=== PATIENT | female | born 1965 | race Caucasian/White ===

== ENCOUNTER → 2024-06-27 11:58 | Outpatient (REF) | payer OTHER, SELFPAY | LOC: WDC 11:58 | PROVIDERS: ATTENDING PHYSICIAN Hospitalist | DX: Z12.31 Encounter for screening mammogram for malignant neoplasm of breast (principal) | CPT/HCPCS: 77063; 77067 ==

== ENCOUNTER → 2024-11-26 15:17 | Outpatient (REF) | payer OTHER, SELFPAY | LOC: RAD 15:17 | PROVIDERS: ATTENDING PHYSICIAN Nurse Practitioner | DX: U07.1 COVID-19 (principal) | CPT/HCPCS: 71046 ==

== ENCOUNTER → 2025-03-10 06:42 | Outpatient (REF) | payer OTHER, SELFPAY ==
[2025-03-10 07:28] LABS: Hematocrit 43.1 % (37.0-47.0); Hemoglobin 13.7 g/dL (12.0-16.0); Mean Corp Hgb Conc. 31.8 g/dL (33.0-37.0); Mean Corpuscular Volume 88.3 fL (81.0-99.0); Nucleated Red Blood Cells % 0 %; Platelet Count 407 10^3/uL (130-400); Red Cell Dist. Width 12.1 % (11.5-14.5)
[2025-03-10 07:53] LABS: ALT (SGPT) 15 U/L (0-35); AST (SGOT) 19 U/L (14-36); Albumin 3.8 g/dl (3.5-5.0); Alkaline Phosphatase 85 U/L (38-126); Blood Urea Nitrogen 9 mg/dl (7-17); C-Reactive Protein 18.00 mg/L (0.0-10.00); Calcium 9.0 mg/dl (8.4-10.2); Carbon Dioxide 29 mmol/L (22-30); Chloride 103 mmol/L (98-107); Glucose 93 mg/dl (70-99); Potassium 4.1 mmol/L (3.5-5.1); Sodium 138 mmol/L (135-145); Total Protein 6.6 g/dl (6.3-8.2); eGFR > 60.00
== END ==
LOC: REG 06:42
PROVIDERS: ATTENDING PHYSICIAN Internal Medicine Gastroenterology; FAMILY PHYSICIAN Internal Medicine
DX: R19.7 Diarrhea, unspecified (principal); K51.819 Other ulcerative colitis with unspecified complications
CPT/HCPCS: 36415; 80053; 83993; 85025; 86140; 87324; 87328; 87329; 87449

== ENCOUNTER 2025-03-14 12:58 | Inpatient (IN) | payer OTHER, SELFPAY ==
[2025-03-14 07:41] VITALS: BP 118/66
[2025-03-14] MEDS: NSS 1000 IV ×2 (08:44→14:58)
[2025-03-14] MEDS: ZOFRAN 4 MG IV ×2 (08:45→15:58)
[2025-03-14] MEDS: OMNIPAQUE 50 ML PO (08:45)
[2025-03-14] MEDS: MORPHINE SULFATE 4 MG IV ×2 (08:45→15:49)
[2025-03-14 09:13] LABS: ALT (SGPT) 16 U/L (0-35); AST (SGOT) 19 U/L (14-36); Albumin 3.5 g/dl (3.5-5.0); Alkaline Phosphatase 86 U/L (38-126); Blood Urea Nitrogen 9 mg/dl (7-17); Calcium 8.7 mg/dl (8.4-10.2); Carbon Dioxide 30 mmol/L (22-30); Chloride 103 mmol/L (98-107); Glucose 87 mg/dl (70-99); Lipase 48 U/L (23-300); Potassium 3.9 mmol/L (3.5-5.1); Sodium 136 mmol/L (135-145); Total Protein 6.1 g/dl (6.3-8.2); eGFR > 60.00
[2025-03-14 09:18] LABS: Hematocrit 41.8 % (37.0-47.0); Hemoglobin 14.0 g/dL (12.0-16.0); Mean Corp Hgb Conc. 33.5 g/dL (33.0-37.0); Mean Corpuscular Volume 83.1 fL (81.0-99.0); Nucleated Red Blood Cells % 0 %; Platelet Count 395 10^3/uL (130-400); Red Cell Dist. Width 12.0 % (11.5-14.5)
--- NOTE | 2025-03-14 09:38 | ED.GENMED ---
History of Present Illness
<Eunice Delacruz PA-C - Last Filed: 03/14/25 15:14>
General
Chief Complaint: Abdominal Pain
Source: patient
Exam Limitations: none
Time Seen by Provider: 03/14/25 07:45
Nursing documentation reviewed up to this point in time: agreed with
History of Present Illness
History of Present Illness:
see MDM
Past History
<Eunice Delacruz PA-C - Last Filed: 03/14/25 15:14>
Past History
ED Past Medical History: Other (Ulcerative colitis) and Other (Kidney stones)
ED Past Surgical History: None; Negative Bowel resection
Social History
Tobacco: Non-smoker
Alcohol: None
Drug: None
Personal:
Living: with family
Employment: Employed
Family History
Family History: Other (Noncontributory)
Review of Systems
<Eunice Delacruz PA-C - Last Filed: 03/14/25 15:14>
Review of Systems
Allergies reviewed?: Yes
All Other Systems: Not applicable
Phy Exam
<Eunice Delacruz PA-C - Last Filed: 03/14/25 15:14>
Physical Exam
Physical Exam:
GENERAL: Alert , in no apparent distress
EYE: pupils equal and reactive
NECK: Supple
ENT: o/p clr, mmm.
CARDIAC: Regular rate and rhythm .
LUNGS: Clear breath sounds bilaterally, no acute respiratory distress, no wheezes/rales/rhonchi
ABDOMEN: Soft, lower abdominal tenderness, moderate, no rebound/guarding, no cvat, normal bowel sounds
NEUROLOGICAL: Alert and oriented, no focal neuro deficits
SKIN: Warm and dry, skin intact.
MUSCULOSKELETAL: No edema, well perfused. neg jamari's sign
PSYCH: Normal and appropriate interaction.
Course
<Eunice Delacruz PA-C - Last Filed: 03/14/25 15:14>
Orders/Labs/Results
Orders:
Orders
03/14/25 Breakfast
Clear Liquid
At Your Request: Limited, Narrow Gauge Engineer Required
Does patient need a safe tray?: No
Clear Liquids: No red liquids
03/14/25 08:00
0.9% Sodium Chloride 1000 ml [Nss] 1,000 ml IV BOLUS
Iohexol [Omnipaque] See Protocol PO NOW STA
Morphine Sulfate 4 mg IV NOW STA
Ondansetron Injectable [Zofran] 4 mg IV NOW STA
03/14/25 08:02
CT Abd/pel W Iv And Oral Contr Urgent
Comment:
Reason For Exam: lower abd pain, bloody diarrhea, colitis
03/14/25 08:38
Complete Blood Count/With Diff Urgent
Comprehensive Metabolic Panel Urgent
Lipase Urgent
03/14/25 10:27
Urinalysis Reflex To Culture Urgent
Date Specimen was Collected: 03/14/25
Time Specimen was Collected: 10:26
Urine Microscopic Reflex Cult Urgent
03/14/25 12:37
Admit/Transfer Patient As Directed
Co-Sign Provider:
Level of Care: Inpatient admission
Assign to:: Medical/Surgical
Physician / Group: Htay
Diagnosis: UC Flare
Reason for Hospitalization: IVFs, GI consult, possible steroids
Expected length of stay greater than two midnights?: Yes
ELOS- Estimated Length of Stay in days: 3
I certify the patient meets the requirements for IP care: Yes
PRN Pain Medication Management As Directed
May give lesser potent ordered pain med per pt: Yes
preference::
Protocol:: Medication orders for pain may be administered in a
manner that supports deferring to patient preference
when the pt is:
- Requesting an ordered lesser potent pain medication.
Least to most potent pain medications are defined
as: acetaminophen < NSAID < tramadol < opioids
(morphine, oxycodone, hydromorphone).
- Requesting a lesser dose of the same medication IF
ORDERED.
- Requesting a less intrusive route of administration
if both routes are prescribed by the provider (PO <
IV).
03/14/25 12:38
Code Status As Directed
Resuscitation Status: Full Code
03/14/25 13:50
0.9% Sodium Chloride 1000 ml [Nss] 1,000 ml IV 100 mls/hr
Acetaminophen [Tylenol] 650 mg PO Q4HPRN PRN
HYDROmorphone [Dilaudid] 0.25 mg IV Q3HPRN PRN
Ondansetron Injectable [Zofran] 4 mg IV Q6HPRN PRN
03/14/25 13:50
GASTROINTESTINAL CONSULT Routine
Consulting Provider: Ashleigh Wen
Was physician already notified: Yes
Activity As Directed
Activity Level: Out of Bed-Early Mobility
With Assistance
Pneumatic Compression Sleeves As Directed
Type: Knee high
Vital Signs As Directed
Frequency: Per unit guidelines
DX Deep Vein Thrombosis Video Routine
03/14/25 20:00
Mesalamine Delayed Release [Asacol, Delzicol Dr] 800 mg PO BID
03/15/25 06:00
Basic Metabolic Panel IN AM
Complete Blood Count/No Diff IN AM
Abnormal Lab Results
03/14/25 03/14/25
08:38 10:27
WBC 17.4 H 10^3/uL
(4.8-10.8)
Abs Immat Gran (auto) 0.2 H 10^3/uL
(0-0.05)
Absolute Neuts (auto) 13.5 H 10^3/uL
(1.4-6.5)
Absolute Monos (auto) 1.5 H 10^3/uL
(0.1-0.6)
Immature Gran % 0.9 H %
(0-0.5)
Neutrophils % 77.2 H %
(42.2-75.2)
Lymphocytes % 8.9 L %
(20.5-51.1)
Total Protein 6.1 L g/dl
(6.3-8.2)
Urine Ketones 2+ A
(Negative)
Ur Occult Blood Reflex 1+ A
(Negative)
Urine Albumin (Reflex) 1+ A
(Neg - Trace)
03/14/25 08:38
03/14/25 08:38
Vital Signs
Initial and Last Documented VS:
Initial Vital Signs
Temp Pulse Resp BP Pulse Ox
36.4 C 73 18 118/66 100
03/14/25 07:41 03/14/25 07:41 03/14/25 07:41 03/14/25 07:41 03/14/25 07:41
Last Documented Vital Signs
Temp Pulse Resp BP Pulse Ox
36.9 C 76 18 129/69 98
03/14/25 13:51 03/14/25 13:51 03/14/25 13:51 03/14/25 13:51 03/14/25 13:51
<Zoila Ball MD - Last Filed: 03/14/25 13:49>
Orders/Labs/Results
Orders:
Orders
03/14/25 Breakfast
Clear Liquid
At Your Request: Limited, Narrow Gauge Engineer Required
Does patient need a safe tray?: No
Clear Liquids: No red liquids
03/14/25 08:00
0.9% Sodium Chloride 1000 ml [Nss] 1,000 ml IV BOLUS
Iohexol [Omnipaque] See Protocol PO NOW STA
Morphine Sulfate 4 mg IV NOW STA
Ondansetron Injectable [Zofran] 4 mg IV NOW STA
03/14/25 08:02
CT Abd/pel W Iv And Oral Contr Urgent
Comment:
Reason For Exam: lower abd pain, bloody diarrhea, colitis
03/14/25 08:38
Complete Blood Count/With Diff Urgent
Comprehensive Metabolic Panel Urgent
Lipase Urgent
03/14/25 10:27
Urinalysis Reflex To Culture Urgent
Date Specimen was Collected: 03/14/25
Time Specimen was Collected: 10:26
Urine Microscopic Reflex Cult Urgent
03/14/25 12:37
Admit/Transfer Patient As Directed
Co-Sign Provider:
Level of Care: Inpatient admission
Assign to:: Medical/Surgical
Physician / Group: Azaliay
Diagnosis: UC Flare
Reason for Hospitalization: IVFs, GI consult, possible steroids
Expected length of stay greater than two midnights?: Yes
ELOS- Estimated Length of Stay in days: 3
I certify the patient meets the requirements for IP care: Yes
PRN Pain Medication Management As Directed
May give lesser potent ordered pain med per pt: Yes
preference::
Protocol:: Medication orders for pain may be administered in a
manner that supports deferring to patient preference
when the pt is:
- Requesting an ordered lesser potent pain medication.
Least to most potent pain medications are defined
as: acetaminophen < NSAID < tramadol < opioids
(morphine, oxycodone, hydromorphone).
- Requesting a lesser dose of the same medication IF
ORDERED.
- Requesting a less intrusive route of administration
if both routes are prescribed by the provider (PO <
IV).
03/14/25 12:38
Code Status As Directed
Resuscitation Status: Full Code
12/06/25 13:50
0.9% Sodium Chloride 1000 ml [Nss] 1,000 ml IV 100 mls/hr
Acetaminophen [Tylenol] 650 mg PO Q4HPRN PRN
HYDROmorphone [Dilaudid] 0.25 mg IV Q3HPRN PRN
Ondansetron Injectable [Zofran] 4 mg IV Q6HPRN PRN
03/14/25 13:50
GASTROINTESTINAL CONSULT Routine
Consulting Provider: Ashleigh Wen
Was physician already notified: Yes
Activity As Directed
Activity Level: Out of Bed-Early Mobility
With Assistance
Pneumatic Compression Sleeves As Directed
Type: Knee high
Vital Signs As Directed
Frequency: Per unit guidelines
DX Deep Vein Thrombosis Video Routine
03/14/25 20:00
Mesalamine Delayed Release [Asacol, Delzicol Dr] 800 mg PO BID
03/15/25 06:00
Basic Metabolic Panel IN AM
Complete Blood Count/No Diff IN AM
Abnormal Lab Results
03/14/25 03/14/25
08:38 10:27
WBC 17.4 H 10^3/uL
(4.8-10.8)
Abs Immat Gran (auto) 0.2 H 10^3/uL
(0-0.05)
Absolute Neuts (auto) 13.5 H 10^3/uL
(1.4-6.5)
Absolute Monos (auto) 1.5 H 10^3/uL
(0.1-0.6)
Immature Gran % 0.9 H %
(0-0.5)
Neutrophils % 77.2 H %
(42.2-75.2)
Lymphocytes % 8.9 L %
(20.5-51.1)
Total Protein 6.1 L g/dl
(6.3-8.2)
Urine Ketones 2+ A
(Negative)
Ur Occult Blood Reflex 1+ A
(Negative)
Urine Albumin (Reflex) 1+ A
(Neg - Trace)
03/14/25 08:38
03/14/25 08:38
Vital Signs
Initial and Last Documented VS:
Initial Vital Signs
Temp Pulse Resp BP Pulse Ox
36.4 C 73 18 118/66 100
03/14/25 07:41 03/14/25 07:41 03/14/25 07:41 03/14/25 07:41 03/14/25 07:41
Last Documented Vital Signs
Temp Pulse Resp BP Pulse Ox
36.9 C 76 18 129/69 98
03/14/25 13:51 03/14/25 13:51 03/14/25 13:51 03/14/25 13:51 03/14/25 13:51
<Eunice Delacruz PA-C - Last Filed: 03/14/25 15:14>
MDM/Problems Addressed
Differential Diagnosis Includes:
see MDM
MDM/Problems Addressed:
Note:
CHIEF COMPLAINT(S)
Colitis flare with associated symptoms of diarrhea, abdominal pain, and recently observed blood in stool.
HISTORY OF PRESENT ILLNESS
The patient is a 59 y/o female with a known history of ulcerative colitis, on mesalamine, presenting with a flare-up characterized by diarrhea, abdominal pain, and recent onset of blood in the stool. She reports that her symptoms began shortly after
returning from a trip to [facility] and [place] around February 07. The patient had been doing well for an extended period and was training for a half marathon, suggesting good previous control of her colitis symptoms. However, post-travel, she developed
a cold and subsequently restarted her mesalazine medication after being off it for several months.
really int he past week, she has gotten worse with pain, fatigue and loose stools. she had outpatient labs with stool sample this week but doesn't know results
her GI is aware (from [facility]) and they were waiting on results before changing any meds.
The diarrhea is described as loose but not watery, but has had a little blood since last night, and pain is localized to the abdomen without mention of fever or chills. The patient denies any history of partial colectomy. Notably, she vomited,
though without substantial contents. She is experiencing mild nausea currently but reported prior nausea in response to morphine for pain management. She is currently on a generic form of mesalazine, taking 800 mg twice daily. There is a history of
previous hospitalization for a colitis flare approximately ten years ago. The patient is aware of her condition and has a regular consultation with her outsole flexer, though has not contacted their office during this flare-up. She is awaiting
the results of ongoing stool tests to determine if an infection is present.
SOCIAL DETERMINANTS AFFECTING HEALTH
The patient mentioned being an avid runner and maintaining an active lifestyle, which may have positive influences on her health. She notes a supportive environment, especially from her spouse, though they humorously noted that he is seldom in
medical settings.
REVIEW OF SYSTEMS
- Gastrointestinal: Loose stool, minimal blood in stool upon wiping since today, abdominal pain, and mild nausea. Denies fever, chills, or pain during urination.
- General: Experienced a cold post-travel.
PHYSICAL EXAM
- Abdominal: Pain localized without specificity to quadrants described verbally by the patient.
Nursing notes reviewed and vital signs reviewed.
PROBLEM LIST
- Acute: Colitis flare, diarrhea, abdominal pain, bloody stools.
PLAN
- Conduct additional laboratory tests including stool analysis.
- Review pending laboratory results as soon as they are available.
- Consider intravenous fluids and possible pain management suitable for current symptoms.
- Discuss findings and management plan with the patients outsole flexer if necessary.
- Possible hospitalization to be considered based on the clinical assessment.
DIFFERENTIAL DIAGNOSIS
The Differential Diagnosis includes, in no particular order and is not limited to:
1. Ulcerative colitis flare
2. Infectious colitis
3. Inflammatory bowel disease exacerbation
4. Irritable bowel syndrome
5. Gastroenteritis
6. Crohns disease
7. Ischemic colitis
8. Antibiotic-associated colitis
9. Food poisoning
10. Colorectal cancer
59-year-old female with a history of ulcerative colitis who had been recently doing quite well until the last month where she has had
CARE-UPDATE
03/14/25 - 11:46
Ms. Peralta presents with a white blood cell count elevated to 17,000, suggesting an inflammatory response, consistent with her colitis diagnosis. Recent stool cultures returned negative for Giardia, Cryptosporidium, and C. diff. Imaging suggests
right-sided colitis involving the cecum, ascending colon, and right transverse colon. Ms. Peralta expressed significant fatigue and persistent abdominal pain, with intense episodes causing her to be doubled over earlier that day. She conveyed a
desire to go home, although acknowledged the need for effective symptom management before discharge. The decision was made to consider hospital admission for IV fluids and pain management to preempt severe symptom recurrence. A consultation with her
long-term GI and oncology team will be pursued to optimize her treatment plan. Ms. Peralta consented to this plan and provided contact details for coordinating care.
I did try to reach out to GI from [place] but had trouble, the answering service would not page them directly, I tried to go through the transfer center but they would only call consult if I was transferring the patient. Thus the patient will
have to have a GI consult here
<Eunice Delacruz PA-C - Last Filed: 03/14/25 15:14>
*Pulse Oximetry
SaO2: 100
Oxygen Mode of Delivery: Room air
Patient hypoxic: no (98)
*Critical Care Note
Total Time (30-74mins, 75-104mins- exclusive of procedures): Not Applicable
ED Attending Note
<Eunice Delacruz PA-C - Last Filed: 03/14/25 15:14>
-
Portions of this chart may have been created with voice recognition software.� Occasional wrong word or��sound alike� substitutions may have occurred due to the inherent limitations of voice recognition software.
<Zoila Ball MD - Last Filed: 03/14/25 13:49>
ED Attending Note
Patient seen and examined by attending physician: Yes
I performed the substantive portion of visit, reviewed & personally made and approve the management plan that is documented in note by myself or EMBER.: Yes
ED Attending Note:
Patient appears nontoxic. Heart sounds regular. Lung sounds clear. Diffuse mild abdominal tenderness throughout
Discharge Plan
Departure
Patient Disposition: Admit
Date of Disposition: 03/14/25
Time of Disposition: 11:56
Admit to: Med/Surg
Presentation/result/management discussed w/ accepting MD/DO: Hospitalist
Condition: Fair
Covid-19: Not Applicable
Discharge Problem:
Ulcerative colitis
Interventions
Interventions:
*Risk Screen - Suicide Last Done: 03/14/25 07:41
*General Assessment Last Done: 03/14/25 07:41
*Neglect/Abuse Screening Last Done: 03/14/25 07:41
[facility] Fall Risk Assessment Tool Last Done: 03/14/25 09:02
*Nursing Disposition Last Done: 03/14/25 14:05
FR-Wqazop-Enqxlsswtz Assessment Last Done: 03/14/25 09:02
Discharge Date and Time
Discharge Date/Time: 03/14/25 14:07
[2025-03-14 11:51] LABS: Urine Character Clear (Clear)
[2025-03-14 11:53] LABS: Urine Red Blood Cell 0-2 /HPF (0-2); Urine White Cell 0-2 /HPF (0-5)
--- NOTE | 2025-03-14 12:35 | W.PN.UPDATE ---
Update Note
Progress Note Update
This note serves as an addendum to the H&P by curtain inspector EMBER�Elza HYATTHARRY
HPI�
59F
PMHX UC on Mesalamine, Left-sided urolithiasis with hydronephrosis ( 2018)
- she pw acute lower abdominal pain, N/V/D
- reports blood mixed with stool stools that is more than she has had all week.
Relevant VS
Temp Pulse Resp BP Pulse Ox
97.6 F 73 18 118/66 100
03/14/25 07:41 03/14/25 07:41 03/14/25 07:41 03/14/25 07:41 03/14/25 09:39
PE
Gen: NAD
HEENT: anicteric
Neck: supple
Lungs:CTA
Cor: RRR S1 S2
Abdomen:� Soft, moderately tender lower abdominal, no rebound/guarding, no CVAT
BAND LEADER: AAO3
MS:Eliza edema
Psych:Nl mood and affect
Relevant Data�
03/10/25 03/14/25
06:55 08:38
WBC 17.4 H
Hgb 13.7 14.0
Plt Count 407 H 395
BUN 9
Creatinine 0.7
eGFR > 60.00
Total Bilirubin 0.5
AST 19
ALT 16
Alkaline Phosphatase 86
Lipase 48
Procedure Result Verified
Cryptosporidium/Giardia Ag Final 03/10/25-1301
Negative for Cryptosporidium and/or Giardia Lamblia
antigens.
C Diff Antigen & Toxins A & B Final 03/10/25-1301
Negative for toxigenic C.difficile
CT Abd/pel W Iv And Oral Contr
CLINICAL INDICATION: Lower abdominal pain. Bloody diarrhea. Colitis.
IMPRESSION: Moderate infectious or inflammatory colitis involving the cecum, ascending colon, and the right side of the transverse colon.
Last hospitalist admission: 10/30/2017 - 10/30/2017
DISCHARGE DIAGNOSIS: Left-sided urolithiasis with hydronephrosis.
ASSESSMENT & PLAN
Pending Rx reconciliation
Colitis infectious or inflammatory with abdominal pain and worsening hematochezia for a week
- Hemodynamically stable
- Clear and IVF
- PRN analgesia
- PRN antiemetics
- GI consult
- Hold off Steroids +/_ ABx till eval for GI
HX UC on Mesalamine
- [facility] : [email or web address]
HX Left-sided urolithiasis with hydronephrosis ( 2018)
DVT Px: SCD
Full code
IP MS
--- NOTE | 2025-03-14 12:41 | HPS.HSE ---
Family Physician
-
Family Physician: Nikkie Garcia
Chief Complaint
-
Abdominal Pain, and Bloody Diarrhea
History of Present Illness
Patient is a 59 y/o female past medical history of ulcerative colitis initially diagnosed at age 20 who presents with abdominal pain and bloody diarrhea. Patient reports her ulcerative colitis has been well controlled on mesalamine for many years
with her last flare in 2014. She reports over the past year they have been weaning down her mesalamine, and she was off of it for a brief time. In early February after returning from a trip to [place] she developed an upper respiratory infection
and also noted some GI symptoms at which time she was started back on a low of mesalamine. She initially noted some improvement, but over the past week her symtpoms have worsened again. She reports diarrhea, sometimes bloody, associated with
increased abdominal pain. She reports nausea and dry heaves. Today abdominal was worse prompting her to come to the emergency department for evaluation. She denies any fevers.
Medical History
Past Medical History
Past Medical History: Reports Other
Additional Past Medical History:
Ulcerative Colitis
Nephrolithiasis
Past Surgical History: Reports None
Social History
Tobacco: Non-smoker
Alcohol: Other (Rare)
Family History
Family History: Not pertinent
Allergies / Home Medications
Allergies reflects when Allergies were last updated in [employer].
Home Medications with original date entered in [employer]
Allergy/Medication List:
Allergies
Allergy/AdvReac Type Severity Reaction Status Date / Time
No Known Allergies Allergy Verified 03/14/25 07:41
Home Medications
mesalamine 400 mg capsule (with delayed release tablets inside) 800 mg PO BID 03/14/25
Review of Systems
-
A 12 point ROS was completed and negative except as noted: Yes
Constitutional: Denies Fever or Chills
Respiratory: Denies Cough or Trouble Breathing
Cardiac: Denies Chest Pain or Palpitations
Abdomen/GI: Reports See HPI
Physical Exam
Vital Signs
Vital Signs
Temp Pulse Resp BP Pulse Ox
97.6 F 73 18 118/66 100
03/14/25 07:41 03/14/25 07:41 03/14/25 07:41 03/14/25 07:41 03/14/25 09:39
Physical Exam
General: Well Developed, Well Nourished and No Apparent Distress
HEENT: NormoCephalic, Anicteric, Moist mucous membranes and Atraumatic
Respiratory: Clear and Non Labored Respirations; No Wheezes, Rales or Rhonchi
Cardiac: S1/S2 and Regular Rhythm; No Murmur
GI: Soft, Non Distended, Normal Bowel Sounds and Tender (Mild tenderness throughout, more pronounced in right lower quadrant without rebound or guarding)
Rectal: Deferred by Provider
Musculoskeletal: No Clubbing, No Cyanosis and No Edema
Skin: Warm and Dry; No Rash
Neuro: Awake, Alert, Oriented and Nonfocal/grossly intact
Psych: Calm
Laboratory Results
-
03/14/25 08:38
03/14/25 08:38
Laboratory Results
Total Bilirubin 0.5 mg/dl (0.2-1.3) 03/14/25 08:38
AST 19 U/L (14-36) 03/14/25 08:38
ALT 16 U/L (0-35) 03/14/25 08:38
Alkaline Phosphatase 86 U/L (38-126) 03/14/25 08:38
Lipase 48 U/L (23-300) 03/14/25 08:38
Laboratory Tests
03/10/25
12:42
Stool Calprotectin 1260 H
Abd/Pelvis CT:
Moderate infectious or inflammatory colitis involving the cecum, ascending colon, and the right side of the transverse colon.
Data Reviewed
-
CT Scan: Report Reviewed by me
Lab Data: Labs Reviewed by me
Impression/Plan
-
Acute Ulcerative Colitis Flare
-Stool negative for cryptosporidium, Giardia, C Diff with negative GI pathogen PCR test
-Fecal calprotectin elevated
-Consult GI
-Allow clear liquids
-Continue analgesics prn and anti-emetics
-Consider steroids - Will defer to GI
DVT proph: SCDs
Code Status: Full Code
--- NOTE | 2025-03-14 13:04 | CM ---
Chart reviewed and spoke with patient and Artie at ED bedside
Lives in [address] with
Independent
no DME
Pt's mother living with her last year. New granddtr is named after the mother, Toshia
Dtr lives 15 min away with granddtr and her
PCP Dr. Nikkie Garcia
[facility]
no hx of SNF nor VN
DCP is to go home with no needs
provide transportation
CM will continue to follow up for any dcp needs
[2025-03-14 13:51] VITALS: BP 129/69
--- NOTE | 2025-03-14 15:16 | CON.GI ---
Consultation
-
Date/Time Consultation Requested: 03/14/25
Date/Time Consultation Performed: 03/14/25
Requesting Provider: Jaida Torres
Performing Provider: Dr Wen
Reason for Consultation: abd pain and diarrhea
Medical History
Chief Complaint / HPI
Chief Complaint: abdominal pain
History of Present Illness:
Kathryn is a 59yo W with h/o UC diagnosed at age 20 initially thought to be proctitis then R sided colitis on mesalamine who presents for worsening abd pain and bloody diarrhea. She is known to me as I use to care for her mother.
She has been getting care since [address] Jean at [facility]. She has not had flare up she states since over 10yrs ago. In January she and vacationed in [place] and [place]. When she returned home Feb 07 she and not feeling
well with URI like symptoms. Then she drove to [place] next day for [place]. After returning she noticed worsening abd pain and looser stools. She called GI Dr Stanley and given stool studies to do. Cdiff and infectious workup negative but
fecal calprotectin was 1260. Yesterday after worsening diffuse abd pain and more bloody BM she came in for evaluation. Denies missing any doses of mesalamine. No vision changes, rashes or mouth sores. She is not on AC or chronic nsaids. Her
last Cscope was 3yrs ago and she is due for repeat Apr 2025. Denies odynophagia dysphagia N/V jaundice or wt loss.
Past Medical History
Past Medical History: Other (Ulcerative colitis, kidney ston)
Past Surgical History: Other (Several colonoscopies and EGDs)
Social History
Tobacco: Non-Smoker
Alcohol: Occasional
Drug: None
Personal:
Living: With Family
Family History
Family History: Other (Denies FH of CRC)
Allergies / Home Medications
Allergy/AdvReac Type Severity Reaction Status Date / Time
No Known Allergies Allergy Verified 03/14/25 07:41
�Medication �Instructions �Recorded
mesalamine 400 mg capsule (with 800 mg PO BID 03/14/25
delayed release tablets inside)
Review of Systems
-
All other systems: A 12 pt ROS was Negative except as stated above in HPI
Vital Signs
Temp Pulse Resp BP Pulse Ox
98.4 F 76 18 129/69 98
03/14/25 13:51 03/14/25 13:51 03/14/25 13:51 03/14/25 13:51 03/14/25 13:51
Physical Exam
Exam
GEN: No acute distress, conversant, pleasant
HEENT: anicteric, extraocular movements intact, clear oropharynx without exudates
GI: soft, non-distended, R sided tender to palpation, no guarding or rebound, normal active bowel sounds, no hepatosplenomegaly
EXT: warm, well perfused, trace edema bilaterally
NEURO: AAOx3, non-focal
Results
WBC 17.4 10^3/uL (4.8-10.8) H 03/14/25 08:38
Hgb 14.0 g/dL (12.0-16.0) 03/14/25 08:38
Hct 41.8 % (37.0-47.0) 03/14/25 08:38
MCV 83.1 fL (81.0-99.0) 03/14/25 08:38
Plt Count 395 10^3/uL (130-400) 03/14/25 08:38
Absolute Neuts (auto) 13.5 10^3/uL (1.4-6.5) H 03/14/25 08:38
Sodium 136 mmol/L (135-145) 03/14/25 08:38
Potassium 3.9 mmol/L (3.5-5.1) 03/14/25 08:38
Chloride 103 mmol/L (98-107) 03/14/25 08:38
Carbon Dioxide 30 mmol/L (22-30) 03/14/25 08:38
BUN 9 mg/dl (7-17) 03/14/25 08:38
Creatinine 0.7 mg/dL (0.6-1.0) 03/14/25 08:38
Calcium 8.7 mg/dl (8.4-10.2) 03/14/25 08:38
Total Bilirubin 0.5 mg/dl (0.2-1.3) 03/14/25 08:38
AST 19 U/L (14-36) 03/14/25 08:38
ALT 16 U/L (0-35) 03/14/25 08:38
Alkaline Phosphatase 86 U/L (38-126) 03/14/25 08:38
Lipase 48 U/L (23-300) 03/14/25 08:38
Diagnostic Image Results:
CTAP IV contrast: Moderate infectious or inflammatory colitis involving the cecum, ascending colon, and the right side of the transverse colon
Prior GI Procedures:
EGD/Colonoscopy: 3yrs ago at [facility] unclear results.
Assessment / Plan
-
Kathryn is a 59yo W with h/o kidney stones and ulcerative colitis diagnosed at age 20 with proctitis then R sided colitis on mesalamine. She presents with bloody diarrhea with abd pain in setting of elevated fecal calprotectin >1200 with R sided
colitis on CTAP.
Impression
- Abd pain and diarrhea
Suspect UC flare given elevated fecal calprotectin
- Leukocytosis
- H/o UC
- Recent travel
- Kidney stones
Recommendations
- Saline bolus x1
- C/w IVF at 100mL/hr
- CLD
- Pain management and kpad for abd
- Start steroids solumedrol 20mg Q8H
- Increase mesalamine to induction dosing
- Obtain ESR, CRP, hep B and TB testing in anticipation of needing biologic OP basis
Will follow with you
Data Reviewed
-
CT Scan: Report Reviewed by me
-
-
Thank you for consultation and allowing me to participate in the patient's care. Please call the fabrication supervisor GI physician during the after hours with any questions or concerns.
[2025-03-14] MEDS: SOLU-MEDROL PF 20 MG IV (15:53)
[2025-03-14 16:09] VITALS: BP 99/69
[2025-03-14 17:54] VITALS: BMI 22.3
[2025-03-14] MEDS: ASACOL, DELZICOL DR 2400 MG PO (19:57)
[2025-03-14 23:31] VITALS: BP 93/57
[2025-03-15] MEDS: SOLU-MEDROL PF 20 MG IV ×4 (00:15→23:04)
[2025-03-15] MEDS: NSS 1000 IV ×3 (00:16→20:31)
[2025-03-15 07:00] VITALS: BP 106/65
--- NOTE | 2025-03-15 07:06 | W.PN.HOSP.TC ---
Addendum entered and electronically signed by Joselyn Carmona MD 03/15/25 15:29:
I saw and evaluated the patient independently. I reviewed and discussed the resident�s note and agree with findings and plan as documented by Dr. Herrera.
GENERAL: well developed, well nourished, female in no apparent distress
HEENT: NC/AT--no O2 requirements
HEART: regular rate and rhythm, +S1, +S2, bradycardic
LUNGS : clear to auscultation bilaterally
ABDOM: soft, nontender, nondistended, hyperactive bowel sounds
EXT: no cyanosis, clubbing, or edema
NEUROLOGIC: grossly intact
Abdominal pain, diarrhea suspicious for ulcerative colitis flare--outpt stool studies negative--steroids started--apprec GI-- fecal calprotectin > 1200--testing in process to plan for biologics- CT A/P: Moderate infectious or inflammatory colitis
involving the cecum, ascending colon, and the right side of the transverse colon.
Hx of kidney stones- CT A/P: punctate bilateral intrarenal calculi with no hydronephrosis
DVT proph-- SCDs
code status--Full code
Original Note:
Today's Communication/Plan
-
- methylprednisolone and mesalamine
- low-residue diet
- f/u GI recommendations
Assessment / Plan
Assessment / Plan
59 yo F PMH ulcerative colitis since 20 yo, last flare in 2014, weaned off mesalamine in 2014 p/w abdominal pain, diarrhea, and hematochezia currently most concerning for a ulcerative colitis flare.
Abdominal pain, diarrhea suspicious for ulcerative colitis flare
- VS stable
- leukocytosis (WBC 13.1)
- recent travel, URI/GI illness symptoms, and strenuous exercise may have led to a flare in the setting of a mesalamine wean
- fecal calprotectin > 1200
- stool test negative for cdiff, cryptosporidium, giardia
- CT A/P: Moderate infectious or inflammatory colitis involving the cecum, ascending colon, and the right side of the transverse colon.
- GI consulted, per them, steroids methylprednisolone 20mg q8h and mesalamine
- per GI, IVF 100cc/hr, and CLD -> low residue
- per GI, ESR, CRP, hep B and TB testing in case biologics
- f/u GI recommendations
Chronic issues:
PMHx of kidney stones
- CT A/P: punctate bilateral intrarenal calculi with no hydronephrosis
- continue to monitor for any symptoms
DVTppx: SCDs
Diet: low residue
Full code
Anticipated Discharge: > 48 hours
Subjective/Interval History
-
Date of Service: March 15, 2025
59 yo F PMH ulcerative colitis (diagnosed at 20 yo)p/w abdominal pain and bloody diarrhea.
UColitis has been managed with mesalamine and under good control, last flare is reported to be 2014. In november, mesalamine was being weaned off. However, she travelled to [place] in and after coming back, experienced URI symptoms + GI
symptoms also in context of running multiple half marathons.
She called her doctor and was told to restart low dose mesalamaine with some relief, but over thanksgivign she continued to run and then yesterday felt abdominal pain all over, with diarrhea +/- blood. She came in.
denies chest pain dyhspnea, peripheral edema
In ED, VSS
Labs
c diff/cryptosporidium/giardia negative
fecal calprotectin 1260
Lipase 38
Studies: CT A/P w IV and w oral contrast showed imaging findings of colitis
Objective Data
-
Labs:
Laboratory Results
03/15/25
06:00
WBC Pending
Hgb Pending
Hct Pending
Plt Count Pending
Sodium Pending
Potassium Pending
Chloride Pending
Carbon Dioxide Pending
BUN Pending
Creatinine Pending
Glucose Pending
Calcium Pending
CT Abdomen/Pelvis 03/15/2025
Moderate infectious or inflammatory colitis involving the cecum, ascending colon, and the right side of the transverse colon.
Vital Signs:
Vital Signs
Temp Pulse Resp BP Pulse Ox
98.3 F 57 14 93/57 99
03/14/25 23:31 03/14/25 23:31 03/14/25 23:31 03/14/25 23:31 03/14/25 23:31
I&O
03/14/25 03/15/25 03/16/25
06:59 06:59 06:59
Intake Total 480 / 480
Balance 480 / 480
Review of Systems
-
History Source: Patient
Constitutional: Reports No Symptoms
EENT: Reports No Symptoms Reported
Respiratory: Reports No Symptoms
Cardiac: Reports No Symptoms
Abdomen/GI: Reports Abdominal Pain, Diarrhea and Bloody Stools
Musculoskeletal: Reports No Symptoms
Neuro: Reports No Symptoms
Physical Exam
-
General: Conversant
HEENT: Normocephalic
Respiratory: Clear to Auscultation
Cardiac: Other (no murmurs on my exam)
GI: Soft, Normal Bowel Sounds and Other (mild tenderness to palpation)
Musculoskeletal: No Edema
Neuro: Awake, Alert and Nonfocal/Grossly Intact
Psych: Calm
[2025-03-15] MEDS: ASACOL, DELZICOL DR 2400 MG PO ×2 (08:28→20:32)
[2025-03-15 10:25] LABS: Hematocrit 39.9 % (37.0-47.0); Hemoglobin 13.4 g/dL (12.0-16.0); Mean Corp Hgb Conc. 33.6 g/dL (33.0-37.0); Mean Corpuscular Volume 84.2 fL (81.0-99.0); Platelet Count 368 10^3/uL (130-400); Red Cell Dist. Width 11.9 % (11.5-14.5)
[2025-03-15 10:48] LABS: Blood Urea Nitrogen 11 mg/dl (7-17); Calcium 8.8 mg/dl (8.4-10.2); Carbon Dioxide 24 mmol/L (22-30); Chloride 103 mmol/L (98-107); Estimated Creatinine Clearance 85 ml/min; Glucose 131 mg/dl (70-99); Potassium 4.2 mmol/L (3.5-5.1); Sodium 135 mmol/L (135-145); eGFR > 60.00
--- NOTE | 2025-03-15 10:57 | CM ---
Patient seen at bedside on . No needs at this time. Patient plan is for discharge home with family supports. Cm will continue to follow for discharge planning needs.
Plan; home with no needs
[2025-03-15 11:27] LABS: C-Reactive Protein 32.70 mg/L (0.0-10.00)
[2025-03-15 11:48] LABS: Hepatitis B Surface Antigen Negative (Negative)
--- NOTE | 2025-03-15 12:22 | W.PN.GI.CBS2 ---
Today's Communication / Plan
-
C/w IV steroids
Adv to low residue diet today
OOB ambulate
Assessment / Plan
-
Kathryn is a 59yo W with h/o kidney stones and ulcerative colitis diagnosed at age 20 with proctitis then R sided colitis on mesalamine. She presents with bloody diarrhea with abd pain in setting of elevated fecal calprotectin >1200 with R sided
colitis on CTAP.
Impression
- Abd pain and diarrhea
Suspect UC flare given elevated fecal calprotectin. Stool studies neg for infection
- Leukocytosis
- H/o UC
- Recent travel
- Kidney stones
Recommendations
- C/w solumedrol 20mg Q8H
- C/w mesalamine
- Adv to low residue diet
- Obtain ESR, CRP, hep B and TB testing in anticipation of needing biologic OP basis
- OOB ambulate today
- Monitor stool output
Anticipate transition to slow oral pred taper tomorrow. Will follow with you
Subjective
Subjective
Date of Service: March 15, 2025
She reports much improvement in abd pain. Still with bloody diarrhea. She is eager for diet advancement. Friends visiting are bedside.
Objective
Data Reviewed
Laboratory Data:
Laboratory Results
03/15/25 09:14
03/15/25 09:13
Laboratory Results
Total Bilirubin 0.5 mg/dl (0.2-1.3) 03/14/25 08:38
AST 19 U/L (14-36) 03/14/25 08:38
ALT 16 U/L (0-35) 03/14/25 08:38
Alkaline Phosphatase 86 U/L (38-126) 03/14/25 08:38
Lipase 48 U/L (23-300) 03/14/25 08:38
Vital Signs and I&O:
Vital Signs
Temp Pulse Resp BP Pulse Ox
98.2 F 77 16 106/65 98
03/15/25 07:00 03/15/25 07:00 03/15/25 07:00 03/15/25 07:00 03/15/25 07:00
I&O
03/14/25 03/15/25 03/16/25
06:59 06:59 06:59
Intake Total 480 / 480
Balance 480 / 480
Physical Exam
Physical Exam
GEN: No acute distress, conversant, pleasant
HEENT: anicteric, extraocular movements intact, clear oropharynx without exudates
GI: soft, non-distended, not tender to palpation, normal active bowel sounds, no hepatosplenomegaly
EXT: warm, well perfused, no edema bilaterally
NEURO: AAOx3, non-focal
[2025-03-15 15:00] VITALS: BP 99/68
--- NOTE | 2025-03-15 23:22 | PTCARENOTE ---
Pt is AAOx3, self, rings appropriately. Pt refused bed alarm. Pt education provided. Bed locked, in lowest position, call purvis in reach.
[2025-03-15 23:29] VITALS: BP 106/59
--- NOTE | 2025-03-16 07:15 | W.PN.HOSP.TC ---
Today's Communication/Plan
-
Switch IV Solu-Medrol milligram to prednisone 40 mg while on discharge
Anticipated discharge today by given her improving symptoms of ulcerative colitis flareup.
Hepatitis B is antibodies negative, patient needs outpatient follow-up for receiving hep B vaccine in future.
Follow-up with the cell operator as an OPD for future management which includes biological agent initiation.
Assessment / Plan
Assessment / Plan
59-year-old female with the past history of ulcerative colitis at age 20 with proctitis followed by right-sided colitis on mesalamine she had 2 flares in the past and last episode around 2014, kidney stones(left-sided urolithiasis with
hydronephrosis 2017), regular colonoscopy for 2 years once. Her last time colonoscopy on 2022, her due date for upcoming colonoscopy on April 2025 presented with bloody diarrhea with abdominal pain in setting of elevated fecal calprotectin >1200
with right-sided colitis on CT abdominal pelvis findings.
Last week she went to half marathon after completing she had a sick contact of cold from her afterwards she felt ulcerative colitis flareup which includes lower abdominal pain, diarrhea for more than 6 episodes everyday. She was calling her
cell operator at [facility] and started on mesalamine 800 and twice a day, however her symptoms were getting worse,
Abdominal pain, diarrhea suspicious for ulcerative colitis flare
--VS stable
- leukocytosis (WBC 13.1--12.1)
- recent travel, URI/GI illness symptoms, and strenuous exercise may have led to a flare in the setting of a mesalamine wean
- fecal calprotectin > 1200
- stool test negative for cdiff, cryptosporidium, giardia
-On 03/14 abdominal/pelvis CT scan: Moderate infectious or inflammatory colitis involving the cecum, ascending colon, and the right side of the transverse colon.
- GI consulted, per them, steroids methylprednisolone 20mg q8h and mesalamine
- per GI, IVF 100cc/hr, and CLD -> low residue
- per GI, ESR, CRP, hep B and TB testing in case to start biologics- Hep BS antibody negative, hep B core antibody negative. TB test pending, COVID-negative; CRP 32 high , ESR 7 normal
- f/u GI recommendations
-Inorganic Chemist consulted with recommendation of starting steroids Solu-Medrol 20 mg 8 hourly, increased mesalamine to induction dosing.
- Switch IV Solu-Medrol 10 mg to oral prednisone 40 mg with a taper dosage of 10 mg every 2 weeks.
Mesalamine dosage increased from 800 mg-- 2400 mg BID, planning to switch to oral prednisone tappering dosage.
Chronic issues:
PMHx of kidney stones
- CT A/P: punctate bilateral intrarenal calculi with no hydronephrosis
- continue to monitor for any symptoms
prednisone taper 40 mg / 10 mg every couple weeks
humira in future
follow up for tb testing.
discharge today
DVTppx: SCDs
Diet: low residue
Full code
Anticipated Discharge: Within 24 hours
Subjective/Interval History
-
Date of Service: March 16, 2025
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 Today she feels bloating sensation. She denies rashes, joint pain, fever, oral ulcers not present on examination, vision changes
(episcleritis, scleritis).
Objective Data
-
Labs:
Laboratory Results
03/16/25 03/16/25
06:41 06:42
WBC Pending
Hgb Pending
Hct Pending
Plt Count Pending
Sodium Pending
Potassium Pending
Chloride Pending
Carbon Dioxide Pending
BUN Pending
Creatinine Pending
Glucose Pending
Calcium Pending
Vital Signs:
Vital Signs
Temp Pulse Resp BP Pulse Ox
97.7 F 57 20 106/59 98
03/15/25 23:29 03/15/25 23:29 03/15/25 23:29 03/15/25 23:29 03/15/25 23:29
I&O
03/15/25 03/16/25 03/17/25
06:59 06:59 06:59
Intake Total 480 / 480
Balance 480 / 480
Review of Systems
-
History Source: Patient
All other systems: Reviewed and negative
Physical Exam
-
General: Well Developed
HEENT: Moist Mucous Membranes
Respiratory: Clear to Auscultation
Cardiac: Regular Rhythm and S1/S2
GI: Soft, Normal Bowel Sounds (Hyperechoic auscultation), Tender (Diffuse) and Flat
Genito-urinary: No Costovertebral Tender
Skin: Warm
Neuro: AO x 3
Psych: Calm
[2025-03-16 07:30] VITALS: BP 122/72
[2025-03-16 07:39] LABS: Hematocrit 36.6 % (37.0-47.0); Hemoglobin 12.4 g/dL (12.0-16.0); Mean Corp Hgb Conc. 33.9 g/dL (33.0-37.0); Mean Corpuscular Volume 84.7 fL (81.0-99.0); Platelet Count 423 10^3/uL (130-400); Red Cell Dist. Width 11.9 % (11.5-14.5)
[2025-03-16 08:02] LABS: Blood Urea Nitrogen 13 mg/dl (7-17); Calcium 8.7 mg/dl (8.4-10.2); Carbon Dioxide 26 mmol/L (22-30); Chloride 107 mmol/L (98-107); Estimated Creatinine Clearance 72 ml/min; Glucose 108 mg/dl (70-99); Potassium 4.5 mmol/L (3.5-5.1); Sodium 136 mmol/L (135-145); eGFR > 60.00
[2025-03-16] MEDS: ASACOL, DELZICOL DR 2400 MG PO (09:42)
[2025-03-16] MEDS: SOLU-MEDROL PF 20 MG IV ×2 (09:43→16:56)
--- NOTE | 2025-03-16 12:14 | W.PN.GI.CBS2 ---
Today's Communication / Plan
-
Oral pred 40mg daily today
Ok for hosp d/c from GI perspective with above 2 rx
OP FU with me arranged 04/03
GI will sign off please call for ?
Assessment / Plan
-
Kathryn is a 59yo W with h/o kidney stones and ulcerative colitis diagnosed at age 20 with proctitis then R sided colitis on mesalamine. She presents with bloody diarrhea with abd pain in setting of elevated fecal calprotectin >1200 with R sided
colitis on CTAP.
Impression
- Abd pain and diarrhea
Suspect UC flare given elevated fecal calprotectin. Stool studies neg for infection
- Leukocytosis
- H/o UC
- Recent travel
- Kidney stones
Recommendations
- Transition to oral pred 40mg daily today
- C/w mesalamine
- Tolerating low residue diet
- Hep B and TB testing in anticipation of needing biologic OP basis
- OOB ambulate today
- Monitor stool output
Anticipate hosp d/c today she will need rx for pred taper 40mg x7days, 30mg daily x7 days, 20mg daily x7 days, 10mg daily for 7 days then stop
She will need rx for mesalamine 800mg 6 tabs BID. She has OV with me 04/03
GI will sign off please call for questions
Subjective
Subjective
Date of Service: March 16, 2025
She feels abd pain resolved. Ate most of low residue diet without issues. No nausea/vomiting. Ambulating around floors well
Objective
Data Reviewed
Laboratory Data:
Laboratory Results
03/16/25 06:42
03/16/25 06:41
Laboratory Results
Total Bilirubin 0.5 mg/dl (0.2-1.3) 03/14/25 08:38
AST 19 U/L (14-36) 03/14/25 08:38
ALT 16 U/L (0-35) 03/14/25 08:38
Alkaline Phosphatase 86 U/L (38-126) 03/14/25 08:38
Lipase 48 U/L (23-300) 03/14/25 08:38
Vital Signs and I&O:
Vital Signs
Temp Pulse Resp BP Pulse Ox
98.5 F 60 16 122/72 100
03/16/25 07:30 03/16/25 07:30 03/16/25 07:30 03/16/25 07:30 03/16/25 07:30
I&O
03/15/25 03/16/25 03/17/25
06:59 06:59 06:59
Intake Total 480 / 480
Balance 480 / 480
Physical Exam
Physical Exam
GEN: No acute distress, conversant, pleasant
HEENT: anicteric, extraocular movements intact, clear oropharynx without exudates
GI: soft, non-distended, not tender to palpation, normal active bowel sounds, no hepatosplenomegaly
EXT: warm, well perfused, no edema bilaterally
NEURO: AAOx3, non-focal
[2025-03-16 15:28] VITALS: BP 123/86
--- NOTE | 2025-03-16 15:32 | CM ---
Pt discharge to home no needs. will transport pt home
--- NOTE | 2025-03-16 17:12 | W.DCSUMMARY ---
Documented by User: Jason Fuentes MD, Resident 03/16/25 17:27
Discharge Summary
Discharge Data
Date of Admission: 03/14/25
Date of Discharge: 03/16/25
Total time spent discharging patient (in min): 45 minutes
-
Pending Results: Yes
Additional Pending Results:
TB panel,
Hospital Course
Discharging Physician : Dr Jorge Escobar MD
Dr Jason Fuentes MD
Disposition : Home
Primary care physician : Dr Zaina REA
Principal Discharge diagnosis : Ulcerative colitis flare
Chronic Discharge diagnosis :
Hepatitis panel--negative hep B surface antibody with recommendation of follow-up [facility] for consideration of vaccination for hep B.
Chronic issues includes past medical history of kidney stones--CT abdomen/pelvis: punctate bilateral intrarenal calculi with no hydronephrosis.
Hospital Course :
On 03/14 59-year-old female with past medical history includes ulcerative colitis on age 20 with 2 episodes of flares in the past and the last 1 was around 2014, with regular colonoscopy every 2 years on 2 for colonoscopy on 2025 presented
with more than 6 episodes of blood diarrhea every day along with lower abdominal pain, at the time of admission elevated fecal calprotectin> 1200 with right sided colitis on CT abdominal pelvis findings. Patient was hemodynamically stable and
pot puncher consulted for ulcerative colitis flare. Initial workup includes stool test negative for C. difficile, Cryptosporidium, Giardia. GI recommended for mesalamine dosage increase from 800 mg to 2400 mg twice a day, IV Solu-Medrol 10
mg every 8 hourly. The patient felt better after medications, IV fluids. With leukocytosis count 12.1 at the time of discharge. Patient was able to tolerate soft diet and switched to oral prednisone taper dosage of 40 mg for 7 days, followed by
30 mg for 7 days, 20 mg for 7 days, 10 mg 7 days to complete the course and recommended to follow-up with a pot puncher on 04/03 at the [facility]. She was on SCD for DVT prophylaxis, soft diet as tolerated at this admission. Patient was
instructed to follow-up with [facility] to start biological agents and for hepatitis B vaccination in future, TB panel test results are pending.
IMPORTANT:
If your symptoms worsen when you get home, go to the Emergency Room if you cannot reach a doctor, or call 911
Important imaging findings :
On 03/14 abdominal/pelvis CT scan: Moderate infectious or inflammatory colitis involving the cecum, ascending colon, and the right side of the transverse colon.
Procedure findings : None
Discharge Plan
-
Patient Disposition: Home (Routine Discharge)
Discharge Diagnosis/Procedures: Ulcerative colitis flareup,
left sided urolithiasis with hydro nephrosis
Condition: Fair
Diet: As tolerated and Low Residue
Activity: No restrictions
Driving Restrictions: As prior to admission
Bathing Restrictions: None
Blood Work: CMP in future within a week
Instructions: Ulcerative colitis in adults, Renal Colic (DC), Low-fiber diet
Referrals:
Ashleigh Wen MD [Active, Gastroenterology]
Referral Note: 04/03 in [facility] [address] [facility]
Nikkie Garcia MD [Family Provider, Internal Medicine]
Additional Discharge Medication Instructions: - Continue mesalamine dosage 2400 mg twice daily as instructed by pot puncher.
- Continue prednisone taper dosage for ulcerative colitis flareup-Pred 40mg daily x7days, 30mg daily x7 days 20mg daily x7 days 10mg daily x7 days
- Follow-up with pot puncher 04/[address] Ashleigh Wen MD
- TB testing still pending, will call and inform once we receive the results.
- Recommend to receive hepatitis B vaccine by given her Hep b s antibodies negative.
- Follow-up with PCP within few weeks of discharge.
Prescriptions:
New
prednisone 10 mg Tablet
10 mg PO DIRECTED Qty: 70 0RF
Rx Instructions:
see taper instructions:
From 03/17 until 03/23 take prednisone 10 mg of 4 tablets every day ( 40 mg/day)
From 03/24 until 03/30 take prednisone 10 mg of 3 tablets every day (30 mg/day)
From 03/31 until 04/06 take prednisone 10 mg of 2 tablets every day (20 mg/day)
From 04/07 until 04/13/25 take 10 mg of 1 tablet every day (10 mg/day)
mesalamine 800 mg tablet,delayed release (DR/EC)
2,400 mg PO BID Qty: 180 0RF
Continued
mesalamine 400 mg Capsule (With Del Rel Tablets)
800 mg PO BID
Discharge Orders:
Discharge Patient (As Directed); Ordered 03/16/25
Ordered By: Jason Fuentes
Discharge Date and Time
Discharge Date/Time: 03/16/25 18:04
Print Language: [place]I

Documented by User: Leonel Escobar DO 03/16/25 18:18
Discharge Summary
Discharge Data
Date of Admission: 03/14/25
Date of Discharge: 03/16/25
Total time spent discharging patient (in min): 40
-
Additional Pending Results:
TB testing
Discharge Plan
-
Patient Disposition: Home (Routine Discharge)
Discharge Diagnosis/Procedures: Ulcerative colitis flareup,
left sided urolithiasis with hydro nephrosis
Condition: Fair
Diet: As tolerated and Low Residue
Activity: No restrictions
Driving Restrictions: As prior to admission
Bathing Restrictions: None
Blood Work: CMP in future within a week
Instructions: Ulcerative colitis in adults, Renal Colic (DC), Low-fiber diet
Referrals:
Ashleigh Wen MD [Active, Gastroenterology]
Referral Note: 04/03 in [facility] [address] [facility]
Nikkie Garcia MD [Family Provider, Internal Medicine]
Additional Discharge Medication Instructions: - Continue mesalamine dosage 2400 mg twice daily as instructed by pot puncher.
- Continue prednisone taper dosage for ulcerative colitis flareup-Pred 40mg daily x7days, 30mg daily x7 days 20mg daily x7 days 10mg daily x7 days
- Follow-up with pot puncher 04/[address] Ashleigh Wen MD
- TB testing still pending, will call and inform once we receive the results.
- Recommend to receive hepatitis B vaccine by given her Hep b s antibodies negative.
- Follow-up with PCP within few weeks of discharge.
Prescriptions:
New
prednisone 10 mg Tablet
10 mg PO DIRECTED Qty: 70 0RF
Rx Instructions:
see taper instructions:
From 03/17 until 03/23 take prednisone 10 mg of 4 tablets every day ( 40 mg/day)
From 03/24 until 03/30 take prednisone 10 mg of 3 tablets every day (30 mg/day)
From 03/31 until 04/06 take prednisone 10 mg of 2 tablets every day (20 mg/day)
From 04/07 until 04/13/25 take 10 mg of 1 tablet every day (10 mg/day)
mesalamine 800 mg tablet,delayed release (DR/EC)
2,400 mg PO BID Qty: 180 0RF
Continued
mesalamine 400 mg Capsule (With Del Rel Tablets)
800 mg PO BID
Discharge Orders:
Discharge Patient (As Directed); Ordered 03/16/25
Ordered By: Jason Fuentes
Discharge Date and Time
Discharge Date/Time: 03/16/25 18:04
Print Language: [place]
== END 2025-03-16 18:04 | disposition home or self-care (01) | DRG 387 ==
LOC: 4 WEST ACU 12:58
PROVIDERS: Physician Assistant; Physician Assistant Medical; ADMITTING PHYSICIAN Internal Medicine; ATTENDING PHYSICIAN Internal Medicine; CONSULT PHYSICIAN Internal Medicine Gastroenterology; EMERGENCY PHYSICIAN Emergency Medicine; FAMILY PHYSICIAN Internal Medicine
DX: K51.90 Ulcerative colitis, unspecified, without complications (principal)
CPT/HCPCS: 74177; 80048; 80053; 81003; 81015; 83690; 85025; 85027; 85652; 86140; 86480; 86704; 86706; 87340; 96361; 96374; 96375; 99284; Q9967

== ENCOUNTER → 2025-03-23 06:41 | Outpatient (REF) | payer OTHER, SELFPAY ==
[2025-03-23 08:04] LABS: ALT (SGPT) 25 U/L (0-35); AST (SGOT) 20 U/L (14-36); Albumin 3.8 g/dl (3.5-5.0); Alkaline Phosphatase 68 U/L (38-126); Blood Urea Nitrogen 16 mg/dl (7-17); Calcium 9.5 mg/dl (8.4-10.2); Carbon Dioxide 31 mmol/L (22-30); Chloride 100 mmol/L (98-107); Glucose 78 mg/dl (70-99); Potassium 4.0 mmol/L (3.5-5.1); Sodium 136 mmol/L (135-145); Total Protein 6.4 g/dl (6.3-8.2); eGFR > 60.00
== END ==
LOC: REG 06:41
PROVIDERS: ATTENDING PHYSICIAN Hospitalist
DX: Z51.89 Encounter for other specified aftercare (principal)
CPT/HCPCS: 36415; 80053